=== PATIENT | female | born 1985 | race Caucasian/White ===

== ENCOUNTER 2021-01-28 14:00 | Observation (INO) | payer OTHER ==
[~2021-01-28] VITALS: Ht 160 cm; Wt 89.8 kg
[~2021-01-28 14:00] MED LIST: PREN1TAB52 PO
[2021-01-28] MEDS ORDERED: BETAMETHASONE SOLUSPAN 6 MG/ML 5 ML VIAL IM ONE (14:30)
[2021-01-28 14:47] VITALS: BP 118/66
[2021-01-28] MEDS ORDERED: [UNRECOGNIZED DRUG - OTHER] PO (19:22)
[2021-01-28] MEDS: RINGERS SOLUTION,LACTATED 1,000 ML IV SCH (20:43)
[2021-01-29] MEDS: RINGERS SOLUTION,LACTATED 1,000 ML IV SCH (01:23)
[2021-01-29] MEDS ORDERED: NIFEdipine 10 MG CAPSULE PO ONE (08:45)
[2021-01-29] MEDS ORDERED: BETAMETHASONE SOLUSPAN 6 MG/ML 5 ML VIAL IM ONE (11:00)
== END 2021-01-29 14:10 | disposition home or self-care (01) ==
LOC: 4S 14:00
PROVIDERS: ADMIT Obstetrics & Gynecology; ATTEND Obstetrics & Gynecology
DX: O34.33 Maternal care for cervical incompetence, third trimester (principal); Z3A.35 35 weeks gestation of pregnancy
CPT/HCPCS: 59025; 81001; 96360; 96361 ×2; 96372 ×2; 99219 ×2; J0702 ×2; J7120 ×2

== ENCOUNTER 2021-02-20 07:30 | Inpatient (IN) | payer OTHER ==
[~2021-02-20] VITALS: Ht 160 cm; Wt 91.2 kg
[~2021-02-20 07:30] MED LIST changes: +[UNRECOGNIZED DRUG - OTHER] PO
[2021-02-20] MEDS ORDERED: RINGERS SOLUTION,LACTATED 1,000 ML IV ONE (08:05)
[2021-02-20 08:14] VITALS: BP 136/69
[2021-02-20] MEDS ORDERED: FentaNYL CITRATE PF 100 MCG/2 ML VIAL IVP PRN (08:15)
[2021-02-20] MEDS ORDERED: OXYTOCIN 30 UNITS/LACT RINGERS 500 ML IV PRN (08:15)
[2021-02-20] MEDS ORDERED: OXYTOCIN 30 UNITS/LACT RINGERS 500 ML IV ONE (08:15)
[2021-02-20] MEDS ORDERED: METOCLOPRAMIDE HCL 5 MG/ML 2 ML VIAL IVP PRN (08:15)
[2021-02-20] MEDS ORDERED: CITRIC ACID/SODIUM CITRATE 30 ML SOLUTION UDCUP PO PRN (08:15)
[2021-02-20] MEDS ORDERED: RINGERS SOLUTION,LACTATED 1,000 ML IV PRN (08:15)
[2021-02-20] MEDS: RINGERS SOLUTION,LACTATED 1,000 ML IV SCH ×3 (08:34→15:26)
[2021-02-20 08:59] LABS: BASOPHILS % (AUTO) 0.3 % (0.0-2.0); EOSINOPHILS % (AUTO) 1.2 % (1.0-6.0); HEMATOCRIT 33.7 % (36-46); HEMOGLOBIN 11.2 g/dL (12.0-16.0); LYMPHOCYTES # (AUTO) 1.9 K/uL (1.0-4.8); LYMPHOCYTES % (AUTO) 23.6 % (22.0-44.0); MEAN CORPUSCULAR HEMOGLOBIN 27.2 pg (26.0-34.0); MEAN CORPUSCULAR HGB CONC 33.1 G/dL (31.0-37.0); MEAN CORPUSCULAR VOLUME 82 fL (80-100); MONOCYTES # (AUTO) 0.6 K/uL (0.1-1.0); MONOCYTES % (AUTO) 7.3 % (2.0-9.0); NEUTROPHILS # (AUTO) 5.6 K/uL (1.8-7.7); NEUTROPHILS % (AUTO) 67.6 % (40.0-70.0); PLATELET COUNT (AUTO)-OB 234 K/uL (150-450); RED BLOOD CELL COUNT(AUTO) 4.12 MIL/uL (4.00-5.20); RED CELL DISTRIBUTION WIDTH 16.1 % (11.5-14.5)
[2021-02-20] MEDS ORDERED: ACETAMINOPHEN 325 MG TABLET PO PRN (09:00)
[2021-02-20 09:38] LABS: COVID AG,FIA SOURCE NASOPHARYNGEAL
[2021-02-20] MEDS ORDERED: ROPIVACAINE HCL/PF 0.2% 100 ML ED ONE (11:26)
[2021-02-20] MEDS ORDERED: ROPIVACAINE HCL/PF 0.2% 100 ML ED PRN (12:00)
[2021-02-20] MEDS ORDERED: DiphenhydrAMINE HCL 50 MG/ML VIAL IVP PRN (12:00)
[2021-02-20] MEDS ORDERED: NALBUPHINE HCL 10 MG/ML VIAL IVP PRN (12:00)
[2021-02-20] MEDS ORDERED: ONDANSETRON HCL 4 MG/2 ML VIAL IVP PRN (12:00)
[2021-02-20] MEDS ORDERED: GLYCERIN/WITCH HAZEL LEAF 40 PADS JAR TP PRN (17:15)
[2021-02-20] MEDS ORDERED: MEASLES/MUMPS/RUBELLA VACCINE, LIVE 0.5 ML VIAL SQ. ONE (17:15)
[2021-02-20] MEDS ORDERED: LANOLIN 7 GM OINTMENT TP PRN (17:15)
[2021-02-20] MEDS ORDERED: BENZOCAINE 20%/MENTHOL 56 GM SPRAY CANISTER TP PRN (17:15)
[2021-02-20] MEDS: IBUPROFEN 600 MG TABLET PO SCH (19:37)
[2021-02-20] MEDS ORDERED: OXYGEN THERAPY IH SCH (20:00)
[2021-02-20] MEDS: SENNA/DOCUSATE SODIUM 8.6-50 MG TABLET PO SCH (20:49)
[2021-02-21] MEDS: IBUPROFEN 600 MG TABLET PO SCH ×3 (04:40→16:04)
[2021-02-21 06:20] LABS: BASOPHILS % (AUTO) 0.5 % (0.0-2.0); HEMATOCRIT 31.9 % (36-46); HEMOGLOBIN 10.5 g/dL (12.0-16.0); LYMPHOCYTES # (AUTO) 2.3 K/uL (1.0-4.8); LYMPHOCYTES % (AUTO) 23.2 % (22.0-44.0); MEAN CORPUSCULAR HEMOGLOBIN 27.3 pg (26.0-34.0); MEAN CORPUSCULAR VOLUME 83 fL (80-100); MONOCYTES # (AUTO) 0.7 K/uL (0.1-1.0); MONOCYTES % (AUTO) 6.9 % (2.0-9.0); NEUTROPHILS # (AUTO) 6.7 K/uL (1.8-7.7); NEUTROPHILS % (AUTO) 68.4 % (40.0-70.0); PLATELET COUNT (AUTO)-OB 227 K/uL (150-450); RED BLOOD CELL COUNT(AUTO) 3.85 MIL/uL (4.00-5.20); RED CELL DISTRIBUTION WIDTH 15.8 % (11.5-14.5)
[2021-02-21] MEDS: SENNA/DOCUSATE SODIUM 8.6-50 MG TABLET PO SCH (09:52)
[2021-02-21] MEDS ORDERED: IBUP-2071 PO (12:30)
== END 2021-02-21 18:00 | disposition home or self-care (01) | DRG 807 ==
LOC: OBSVTOIN 07:30 → 4S 07:30
PROVIDERS: ADMIT Obstetrics & Gynecology; ATTEND Obstetrics & Gynecology
PROC: 10E0XZZ Delivery of Products of Conception, External Approach (ICD-10-PCS; principal; 2021-02-20)
PROC: 0KQM0ZZ Repair Perineum Muscle, Open Approach (ICD-10-PCS; 2021-02-20)
PROC: 3E0S3BZ Introduction of Anesthetic Agent into Epidural Space, Percutaneous Approach (ICD-10-PCS; 2021-02-20)
PROC: 00HU33Z Insertion of Infusion Device into Spinal Canal, Percutaneous Approach (ICD-10-PCS; 2021-02-20)
PROC: 3E0234Z Introduction of Serum, Toxoid and Vaccine into Muscle, Percutaneous Approach (ICD-10-PCS; 2021-02-20)
DX: O70.1 Second degree perineal laceration during delivery (principal); Z37.0 Single live birth; Z20.822 Contact with and (suspected) exposure to COVID-19; Z3A.38 38 weeks gestation of pregnancy; Z88.8 Allergy status to other drugs, medicaments and biological substances; Z23 Encounter for immunization
CPT/HCPCS: 85025; 86850; 86900; 86901; 87426; J2590; J2795; J7120